=== PATIENT | male | born 1945 | race Caucasian/White ===

== ENCOUNTER 2017-12-20 12:20 | Emergency (ER) | payer MEDICARE, MEDICAID ==
[2017-12-20] MEDS ORDERED: amiodarone 50MG/ML inj IV ONE (14:00)
[2017-12-20] MEDS ORDERED: epiNEPHrine 0.1mg/ml 10ml syringe ONE (14:00)
[2017-12-20] MEDS ORDERED: sodium bicarbonate (8.4%) 1 mEq/ml syringe ONE (14:00)
== END 2017-12-20 14:45 | disposition expired ==
LOC: ER 12:21
DX: T67.0XXA Heatstroke and sunstroke, initial encounter (principal); I46.9 Cardiac arrest, cause unspecified; X58.XXXA Exposure to other specified factors, initial encounter; Y93.89 Activity, other specified; Y92.89 Other specified places as the place of occurrence of the external cause; Y99.8 Other external cause status
CPT/HCPCS: 31500; 92950; 99291; J7030; J0171; J0282